=== PATIENT | female | born 1950 | race Two or more races ===

== ENCOUNTER 2017-09-18 07:35 | Outpatient (CLI) | payer OTHER ==
[~2017-09-18 07:35] MED LIST: ATACAND4 MG PO; COZAAR25 MG
== END 2017-09-18 07:52 | disposition home or self-care (01) ==
LOC: SONOGRAMA 07:35 → MAMO-SONO 08:15
DX: R10.30 Lower abdominal pain, unspecified (principal)

== ENCOUNTER 2017-10-19 09:46 | Inpatient (IN) | payer OTHER ==
[~2017-10-19] VITALS: Ht 165.1 cm; Wt 58.1 kg
== END 2017-10-21 12:47 | disposition home or self-care (01) | DRG 375 ==
LOC: SEC-K 09:46 → MEDI 10:44
PROC: 0W9G3ZX Drainage of Peritoneal Cavity, Percutaneous Approach, Diagnostic (ICD-10-PCS; principal; 2017-10-20)
DX: C78.6 Secondary malignant neoplasm of retroperitoneum and peritoneum (principal); R18.0 Malignant ascites; C80.1 Malignant (primary) neoplasm, unspecified; R16.0 Hepatomegaly, not elsewhere classified

== ENCOUNTER 2017-10-30 09:24 | Inpatient (IN) | payer OTHER ==
[~2017-10-30] VITALS: Ht 165.1 cm; Wt 54.0 kg
== END 2017-11-02 11:10 | disposition home or self-care (01) | DRG 375 ==
LOC: MEDI 09:24 → SEC-K 09:24 → MEDI 09:57
PROC: 0W9G3ZX Drainage of Peritoneal Cavity, Percutaneous Approach, Diagnostic (ICD-10-PCS; principal; 2017-10-31)
PROC: 0JH63WZ Insertion of Totally Implantable Vascular Access Device into Chest Subcutaneous Tissue and Fascia, Percutaneous Approach (ICD-10-PCS; 2017-11-01)
PROC: 05H633Z Insertion of Infusion Device into Left Subclavian Vein, Percutaneous Approach (ICD-10-PCS; 2017-11-01)
DX: C78.6 Secondary malignant neoplasm of retroperitoneum and peritoneum (principal); R18.0 Malignant ascites; C56.9 Malignant neoplasm of unspecified ovary; J90 Pleural effusion, not elsewhere classified

== ENCOUNTER 2017-11-12 10:01 | Inpatient (IN) | payer OTHER ==
[~2017-11-12] VITALS: Ht 165.1 cm; Wt 49.9 kg
== END 2017-11-21 09:01 | disposition home or self-care (01) | DRG 375 ==
LOC: SEC-K 10:01 → MEDJ 10:01
PROC: 0W9G3ZX Drainage of Peritoneal Cavity, Percutaneous Approach, Diagnostic (ICD-10-PCS; principal; 2017-11-12)
PROC: 8E0ZXY6 Isolation (ICD-10-PCS; 2017-11-12)
PROC: BW21YZZ Computerized Tomography (CT Scan) of Abdomen and Pelvis using Other Contrast (ICD-10-PCS; 2017-11-15)
PROC: 0W9G3ZX Drainage of Peritoneal Cavity, Percutaneous Approach, Diagnostic (ICD-10-PCS; 2017-11-20)
DX: C78.6 Secondary malignant neoplasm of retroperitoneum and peritoneum (principal); R18.0 Malignant ascites; C56.9 Malignant neoplasm of unspecified ovary; A09 Infectious gastroenteritis and colitis, unspecified

== ENCOUNTER 2017-12-06 10:04 | Inpatient (IN) | payer OTHER ==
[~2017-12-06] VITALS: Ht 165.1 cm; Wt 54.0 kg
[2017-12-06] MEDS ORDERED: PEPCID20 MG (10:24)
[2017-12-06] MEDS ORDERED: PROTONIX20 MG (10:24)
== END 2017-12-07 12:42 | disposition home or self-care (01) | DRG 755 ==
LOC: ER 10:04 → SURH 10:44
PROC: 30233N1 Transfusion of Nonautologous Red Blood Cells into Peripheral Vein, Percutaneous Approach (ICD-10-PCS; principal; 2017-12-06)
DX: C56.9 Malignant neoplasm of unspecified ovary (principal); C78.6 Secondary malignant neoplasm of retroperitoneum and peritoneum; D63.0 Anemia in neoplastic disease

== ENCOUNTER 2017-12-11 10:00 | Outpatient (CLI) | payer OTHER ==
[~2017-12-11 10:00] MED LIST changes: +PEPCID20 MG; +PROTONIX20 MG
== END 2017-12-11 10:08 | disposition home or self-care (01) ==
LOC: NUCLEAR 10:00
DX: I87.2 Venous insufficiency (chronic) (peripheral) (principal)

== ENCOUNTER 2018-09-16 07:16 | Outpatient (CLI) | payer OTHER | END 2018-09-16 07:27 | disposition home or self-care (01) | LOC: TOM 07:16 | DX: C53.8 Malignant neoplasm of overlapping sites of cervix uteri (principal) | CPT/HCPCS: 71260; 74177; Q9965 ==

== ENCOUNTER 2019-01-22 08:47 | Inpatient (IN) | payer OTHER ==
[~2019-01-22] VITALS: Ht 165.1 cm; Wt 47.6 kg
--- NOTE | 2019-01-22 09:01 | NUR ---
PACIENTE CON INDICACIONES DE MEDICO DE CABEZERA PARA EVALUARSE POR POLO DE EMERGENCIAS PARA EVALUAR LA POSIBILIDAD DE REALIZZAR BRITTNEY [place].
[2019-01-22] MEDS ORDERED: NEXIUM 24HR20 M1 PO (09:03)
--- NOTE | 2019-01-22 10:22 | NUR ---
SE ORIENTA A PACIENTE SOBRE ORDENES MEDICAS. SE ADMINISTRA MEDICAMENTO, CANALIZA PACIENTE Y COLECTAN MUESTRAS DE LABORATORIO ORDENADAS BAJO MEDIDAS ASEPTICAS. PENDIENTE A SER ADMITIDA.
== END 2019-01-24 08:22 | disposition home or self-care (01) | DRG 755 ==
LOC: ER 08:47 → MEDJ 10:10
PROVIDERS: ADMIT Internal Medicine Cardiovascular Disease
PROC: 8E0ZXY6 Isolation (ICD-10-PCS; 2019-01-22)
PROC: 0W9G30Z Drainage of Peritoneal Cavity with Drainage Device, Percutaneous Approach (ICD-10-PCS; principal; 2019-01-23)
DX: C56.9 Malignant neoplasm of unspecified ovary (principal); C78.7 Secondary malignant neoplasm of liver and intrahepatic bile duct; C79.89 Secondary malignant neoplasm of other specified sites; R18.0 Malignant ascites; C78.6 Secondary malignant neoplasm of retroperitoneum and peritoneum; D64.89 Other specified anemias

== ENCOUNTER 2019-02-03 13:45 | Inpatient (IN) | payer OTHER ==
[~2019-02-03] VITALS: Ht 152.4 cm; Wt 5.0 kg
[~2019-02-03 13:45] MED LIST changes: +NEXIUM 24HR20 M1 PO
== END 2019-02-06 09:29 | disposition home or self-care (01) | DRG 300 ==
LOC: ER 13:45 → MEDI 19:26 → MEDJ 02-04 13:18
PROVIDERS: ADMIT Internal Medicine Cardiovascular Disease
PROC: B54CZZZ Ultrasonography of Left Lower Extremity Veins (ICD-10-PCS; principal; 2019-02-03)
PROC: 0T9B70Z Drainage of Bladder with Drainage Device, Via Natural or Artificial Opening (ICD-10-PCS; 2019-02-03)
PROC: 8E0ZXY6 Isolation (ICD-10-PCS; 2019-02-03)
DX: I82.5Z2 Chronic embolism and thrombosis of unspecified deep veins of left distal lower extremity (principal); R18.0 Malignant ascites; E87.1 Hypo-osmolality and hyponatremia; C78.7 Secondary malignant neoplasm of liver and intrahepatic bile duct; C77.2 Secondary and unspecified malignant neoplasm of intra-abdominal lymph nodes; C57.4 Malignant neoplasm of uterine adnexa, unspecified; Z79.01 Long term (current) use of anticoagulants; R59.0 Localized enlarged lymph nodes; D63.0 Anemia in neoplastic disease; N39.8 Other specified disorders of urinary system

== ENCOUNTER 2019-02-17 07:59 | Inpatient (IN) | payer OTHER ==
[~2019-02-17] VITALS: Ht 165.1 cm; Wt 45.4 kg
[2019-02-17] MEDS ORDERED: ELIQUIS5 MG (08:07)
[2019-02-17] MEDS ORDERED: PEPCID20 MG (08:08)
== END 2019-02-19 09:03 | disposition home or self-care (01) | DRG 375 ==
LOC: ER 07:59 → MEDJ 08:45 → SEC-K 08:45 → MEDJ 12:03
PROVIDERS: ADMIT Internal Medicine Cardiovascular Disease
PROC: 0W9G3ZZ Drainage of Peritoneal Cavity, Percutaneous Approach (ICD-10-PCS; principal; 2019-02-18)
DX: C78.6 Secondary malignant neoplasm of retroperitoneum and peritoneum (principal); I82.5Z2 Chronic embolism and thrombosis of unspecified deep veins of left distal lower extremity; R18.0 Malignant ascites; E87.1 Hypo-osmolality and hyponatremia; C78.7 Secondary malignant neoplasm of liver and intrahepatic bile duct; C77.2 Secondary and unspecified malignant neoplasm of intra-abdominal lymph nodes; C57.4 Malignant neoplasm of uterine adnexa, unspecified; D63.0 Anemia in neoplastic disease; I10 Essential (primary) hypertension; Z79.01 Long term (current) use of anticoagulants

== ENCOUNTER 2019-02-28 09:16 | Inpatient (IN) | payer OTHER ==
[~2019-02-28] VITALS: Ht 165.1 cm; Wt 45.4 kg
[~2019-02-28 09:16] MED LIST changes: +ELIQUIS5 MG
--- NOTE | 2019-02-28 09:50 | NUR ---
PACIENTE REFIERE QUE VIENE CON REFERIDO DE DR. DELEON PARA SER TRANSFUNDIDA. SE RECIBE AL PACIENTE ORIENTADO Y ALERTA EN SERGEI CYDNEY ESFERAS. PACIENTE PRESUTN
== END 2019-03-02 12:01 | disposition home or self-care (01) | DRG 755 ==
LOC: ER 09:16 → SEC-K 09:29 → MEDJ 17:15
PROVIDERS: ADMIT Internal Medicine Cardiovascular Disease
PROC: 30233N1 Transfusion of Nonautologous Red Blood Cells into Peripheral Vein, Percutaneous Approach (ICD-10-PCS; principal; 2019-02-28)
PROC: 8E0ZXY6 Isolation (ICD-10-PCS; 2019-02-28)
PROC: 0T9B70Z Drainage of Bladder with Drainage Device, Via Natural or Artificial Opening (ICD-10-PCS; 2019-02-28)
DX: C56.2 Malignant neoplasm of left ovary (principal); E87.1 Hypo-osmolality and hyponatremia; I82.592 Chronic embolism and thrombosis of other specified deep vein of left lower extremity; R18.8 Other ascites; N39.0 Urinary tract infection, site not specified; C78.7 Secondary malignant neoplasm of liver and intrahepatic bile duct; C77.2 Secondary and unspecified malignant neoplasm of intra-abdominal lymph nodes; C79.82 Secondary malignant neoplasm of genital organs; C56.1 Malignant neoplasm of right ovary; D63.0 Anemia in neoplastic disease; Z79.01 Long term (current) use of anticoagulants; Z74.01 Bed confinement status

== ENCOUNTER 2019-03-05 10:53 | Inpatient (IN) | payer OTHER ==
[~2019-03-05] VITALS: Ht 165.1 cm; Wt 45.4 kg
--- NOTE | 2019-03-05 11:17 | NUR ---
PACIENTE CON INDICACIONES DE MEDICO DE CABEZERA PARA SER EVALUADO POR POLO DE EMERGENCIAS Y ADMITIDA A LOS SERVICIOS DE PARA PROCEDIMIENTO QUIRURGICO.
== END 2019-03-07 09:52 | disposition home or self-care (01) | DRG 755 ==
LOC: ER 10:53 → SEC-K 12:09 → SURH 12:09
PROVIDERS: ADMIT Internal Medicine Cardiovascular Disease
PROC: 0W9G30Z Drainage of Peritoneal Cavity with Drainage Device, Percutaneous Approach (ICD-10-PCS; principal; 2019-03-05)
DX: C56.9 Malignant neoplasm of unspecified ovary (principal); C77.2 Secondary and unspecified malignant neoplasm of intra-abdominal lymph nodes; C78.7 Secondary malignant neoplasm of liver and intrahepatic bile duct; R18.0 Malignant ascites; I82.492 Acute embolism and thrombosis of other specified deep vein of left lower extremity; E87.1 Hypo-osmolality and hyponatremia; C78.6 Secondary malignant neoplasm of retroperitoneum and peritoneum; D63.0 Anemia in neoplastic disease

== ENCOUNTER 2019-03-12 09:11 | Emergency (ER) | payer OTHER ==
[~2019-03-12] VITALS: Ht 165.1 cm; Wt 45.4 kg
[2019-03-12] MEDS ORDERED: ONDANSETRON ODT4 MG SL (15:41)
[2019-03-12] MEDS ORDERED: PEPCID AC20 MG PO (15:41)
== END 2019-03-12 16:05 | disposition home or self-care (01) ==
LOC: ER 09:11
DX: K29.60 Other gastritis without bleeding (principal); E86.0 Dehydration; E46 Unspecified protein-calorie malnutrition

== ENCOUNTER 2019-03-15 16:34 | Inpatient (IN) | payer OTHER ==
[~2019-03-15] VITALS: Ht 165.1 cm; Wt 45.4 kg
[~2019-03-15 16:34] MED LIST changes: +ONDANSETRON ODT4 MG SL; +PEPCID AC20 MG PO
[2019-03-15] MEDS ORDERED: ATARAX25 MG (17:02)
[2019-03-15] MEDS ORDERED: TRAMADOL HCL50 MG (17:02)
--- NOTE | 2019-03-15 17:03 | NUR ---
PTE LLEGA POR AMBULANCIA. FAMILIAR DE PTE INDICA QUE PTE ESTA VOMITANDO OSCURO Y EN ABUNDANCIA. PTE ALERTA CONCIENTE Y ORIENTADA X3
--- NOTE | 2019-03-15 18:05 | NUR ---
PACIENTE EVALUADA POR DR MILES. MS OLSEN ORIENTA A PACIENTE Y FAMILIAR SOBRE ORDENES MEDICAS. COLECTA MUESTRAS DE LABORATORIO ORDENADAS. CANALIZA PACIENTE, CANALIZACION PAXTON DE EDEMA Y/O ENROJECIMIENTO. ADMINISTRA MEDICAMENTOS BAJO MEDIDAS ASEPTICAS. PENDIENTE A RESULTADOS DE LABORATORIO PARA RE-EVALUACION MEDICA.
--- NOTE | 2019-03-16 07:00 | NUR ---
PACIENTE ALERTA Y ORIENTADA EN SERGEI CYDNEY ESFERAS, PRESENTA BUEN PATRON RESPIRATORIO Y PAXTON DE DOLOR. CANALIZADA EN BRAZO RT, PATENTE Y PAXTON DE S/S DE FLEBITIS E INFILTRACION, RECIBIENDO 0.9% NSS A 125 ML/HR REGULADO POR IVPUMP, CANULA NASAL A 2 LT. PENDIENTE EVALUACION MEDICINA INTERNA DR [place] POR VOMITOS, DESHIDRATACION E HIPERCALEMIA.
--- NOTE | 2019-03-16 08:34 | NUR ---
SE ORIENTA A PACIENTE SOBRE ORDEN MEDICA PARA PT, PTT, INR PENDIENTE A COLECTAR, REFIERE ENTENDER. SE COLECTA MUESTRA DE MAURI Y SE ENVIA A LABORATORIO.
== END 2019-03-20 10:32 | disposition expired | DRG 641 ==
LOC: ER 16:34 → SURH 03-16 10:56
PROVIDERS: ADMIT Internal Medicine Cardiovascular Disease
PROC: 0T9B70Z Drainage of Bladder with Drainage Device, Via Natural or Artificial Opening (ICD-10-PCS; principal; 2019-03-16)
PROC: 8E0ZXY6 Isolation (ICD-10-PCS; 2019-03-16)
DX: E87.5 Hyperkalemia (principal); C56.9 Malignant neoplasm of unspecified ovary; C77.2 Secondary and unspecified malignant neoplasm of intra-abdominal lymph nodes; C78.7 Secondary malignant neoplasm of liver and intrahepatic bile duct; R18.0 Malignant ascites; R64 Cachexia; I82.4Z2 Acute embolism and thrombosis of unspecified deep veins of left distal lower extremity; K92.0 Hematemesis; C78.6 Secondary malignant neoplasm of retroperitoneum and peritoneum; E44.0 Moderate protein-calorie malnutrition; J90 Pleural effusion, not elsewhere classified; E86.0 Dehydration; E87.8 Other disorders of electrolyte and fluid balance, not elsewhere classified; K29.60 Other gastritis without bleeding; D63.0 Anemia in neoplastic disease; Z66 Do not resuscitate; N39.8 Other specified disorders of urinary system